=== PATIENT | female | born 1995 | race Caucasian/White ===

== ENCOUNTER 2022-06-14 05:26 | Inpatient (IN) ==
[2022-06-14] MEDS ORDERED: miSOPROStoL 200 MCG TABLET RECTAL PRN (05:35)
[2022-06-14] MEDS ORDERED: OXYTOCIN/LR 20 UNIT/1,000 ML BAG IV PRN (05:35)
[2022-06-14] MEDS ORDERED: METHYLERGONOVINE 0.2 MG/1 ML AMP IM PRN (05:35)
[2022-06-14] MEDS ORDERED: CITRIC ACID/SODIUM CITRATE 30 ML UDCUP PO PRN (05:35)
[2022-06-14] MEDS ORDERED: FAMOTIDINE 20 MG/2 ML VIAL IV PRN (05:35)
[2022-06-14] MEDS ORDERED: TRANEXAMIC ACID 1,000 MG in SODIUM CHLORIDE 0.9% 100 ML IV PRN (05:35)
[2022-06-14] MEDS ORDERED: CARBOPROST TROMETHAMINE 250 MCG/ML AMP IM PRN (05:35)
[2022-06-14 06:05] LABS: Basophils % 0.4 % (0.0-0.8); Eosinophils # 0.1 10*3/uL (0.0-0.87); Eosinophils % 0.8 % (0.00-10.9); Hematocrit 31.1 VOL% (35.7-47.0); Hemoglobin 9.7 GM/DL (12.0-16.0); Immature Granulocytes % 0.4 %; Immature Granulocytes Absolute 0.03 #; Lymphocytes # 2.4 10*3/uL (1.4-4.0); Lymphocytes % 30.4 % (21.3-54.2); Mean Corpuscular HGB Conc 31.2 GM/DL (32-36); Mean Platelet Volume 11.4 FL (9.6-12.0); Monocytes # 0.5 10*3/uL (0.11-0.8); Monocytes % 6.1 % (1.7-12.7); Neutrophils % 61.9 % (38.7-73.9); Platelet Count 237 T/CUMM (130-400); Red Blood Count 4.09 MC/CUMM (3.8-5.5); Red Cell Distribution Width 15.6 % (9.3-17.3); White Blood Count 7.7 T/CUMM (4-12)
[2022-06-14] MEDS: LACTATED RINGERS 1,000 ML IV SCH ×2 (06:05→21:22)
[2022-06-14 06:25] LABS: Alanine Aminotransferase 13 U/L (13-56); Albumin 2.2 G/DL (3.4-5.0); Alkaline Phosphatase 169 U/L (45-117); Aspartate Amino Transferase 15 U/L (0-37); Bilirubin,Total < 0.39 MG/DL (0.20-1.00); Blood Urea Nitrogen 6 MG/DL (7-18); Calcium 9.4 MG/DL (8.5-10.1); Carbon Dioxide 21 MMOL/L (21-32); Chloride 104 MMOL/L (98-107); Glucose 131 MG/DL (74-106); Potassium 3.8 MMOL/L (3.5-5.1); Sodium 136 MMOL/L (136-145)
[2022-06-14] MEDS ORDERED: miSOPROStoL 200 MCG TABLET ONE (07:22)
[2022-06-14] MEDS ORDERED: SODIUM CHLORIDE 0.9% 0 ML IV ONE (07:22)
[2022-06-14] MEDS ORDERED: TRANEXAMIC ACID 1,000 MG/10 ML VIAL ONE (07:22)
[2022-06-14] MEDS ORDERED: OXYTOCIN/LR 20 UNIT/1,000 ML BAG IV ONE ×3 (07:23→12:58)
[2022-06-14] MEDS ORDERED: METHYLERGONOVINE 0.2 MG/1 ML AMP ONE (07:23)
[2022-06-14] MEDS ORDERED: CARBOPROST TROMETHAMINE 250 MCG/ML AMP IM ONE (07:24)
[2022-06-14] MEDS: ceFAZolin 2,000 MG/50 ML DUPLEX IV PRN ×2 (08:41→16:26)
[2022-06-14] MEDS ORDERED: BUPIVACAINE SPINAL 0.75% 2 ML AMP SPINAL ONE (08:44)
[2022-06-14] MEDS ORDERED: buprenorphine HCL 0.3 MG/ML VIAL ONE (08:45)
[2022-06-14] MEDS ORDERED: PHENYLEPHRINE 1 MG/10 ML SYRINGE IV ONE (08:59)
[2022-06-14] MEDS ORDERED: ONDANSETRON 4 MG/2 ML VIAL ONE (09:07)
[2022-06-14] MEDS ORDERED: KETOROLAC 30 MG/1 ML VIAL ONE (09:07)
[2022-06-14] MEDS ORDERED: DEXAMETHASONE 4 MG/1 ML VIAL ONE (09:07)
[2022-06-14] MEDS ORDERED: ACETAMINOPHEN INJ 1,000 MG/100 ML VIAL IV ONE (09:08)
[2022-06-14] MEDS ORDERED: LACTATED RINGERS 1,000 ML IV ONE (09:20)
[2022-06-14] MEDS ORDERED: LIDOCAINE 2% 5 ML VIAL ONE (09:39)
[2022-06-14] MEDS ORDERED: propofoL 200 MG/20 ML VIAL IV ONE (09:39)
[2022-06-14 09:41] LABS: Cord Arterial Blood HCO3 21.5 MMOL/L
[2022-06-14 09:44] LABS: Cord Venous Blood HCO3 23.1 MMOL/L; Cord Venous Blood PO2 34.7
[2022-06-14 09:57] LABS: Bacteria,Urine Occasional /HPF (Few); Mucus,Urine Occasional /LPF (Occasional)
[2022-06-14 09:58] LABS: Bilirubin,Urine Negative (Negative); Glucose,Urine (UA) Negative (Negative); Ketones,Urine Negative (Negative); Nitrite,Urine Negative (Negative); Protein,Urine >=300 mg/dL (Negative); Urine Appearance Clear (Clear); Urine Color Yellow (Yellow)
[2022-06-14 09:59] LABS: Blood, Urine Negative (Negative); Urine Urobilinogen 0.2 eU/dL (<2.0)
[2022-06-14] MEDS ORDERED: ONDANSETRON 4 MG/2 ML VIAL IV PRN (12:58)
[2022-06-14] MEDS ORDERED: BISACODYL 10 MG SUPP RECTAL PRN (12:58)
[2022-06-14] MEDS ORDERED: RHO(D) IMMUNE GLOBULIN 300 MCG SYRINGE IM ONE (12:58)
[2022-06-14] MEDS ORDERED: WITCH HAZEL PADS 100/JAR TOP PRN (12:58)
[2022-06-14] MEDS ORDERED: HYDROCORTISONE 2.5% RECTAL CREAM 30 GM TUBE TOP PRN (12:58)
[2022-06-14] MEDS ORDERED: ACETAMINOPHEN 325 MG TABLET PO PRN (12:58)
[2022-06-14] MEDS ORDERED: BENZOCAINE 20%/MENTHOL 0.5% SPRAY 56 GM CAN TOP PRN (12:58)
[2022-06-14] MEDS ORDERED: oxyCODONE/ACETAMINOPHEN 5-325 MG TABLET PO PRN (12:58)
[2022-06-14] MEDS ORDERED: MEASLES/MUMPS/RUBELLA VACCINE 0.5 ML VIAL SUBCUT ONE (12:58)
[2022-06-14] MEDS ORDERED: DIPH/TET/ACEL PERT BOOSTER VACCINE 0.5 ML VIAL IM ONE (12:58)
[2022-06-14] MEDS ORDERED: LANOLIN 50% CREAM 0.3 OZ TUBE TOP PRN (12:58)
[2022-06-14] MEDS: oxyCODONE/ACETAMINOPHEN 5-325 MG TABLET PO PRN (15:23)
[2022-06-14] MEDS: ACETAMINOPHEN 500 MG TABLET PO SCH ×2 (16:00→22:17)
[2022-06-14] MEDS: KETOROLAC 30 MG/1 ML VIAL IV SCH ×2 (16:24→22:25)
[2022-06-14] MEDS: DOCUSATE SODIUM 100 MG CAPSULE PO SCH (20:47)
[2022-06-15] MEDS ORDERED: ceFAZolin 2,000 MG/50 ML DUPLEX IV ONE (00:30)
[2022-06-15] MEDS: oxyCODONE/ACETAMINOPHEN 5-325 MG TABLET PO PRN ×3 (04:20→17:00)
[2022-06-15] MEDS: ACETAMINOPHEN 500 MG TABLET PO SCH (04:20)
[2022-06-15] MEDS: KETOROLAC 30 MG/1 ML VIAL IV SCH (04:20)
[2022-06-15 04:53] LABS: Basophils % 0.1 % (0.0-0.8); Eosinophils % 0.3 % (0.00-10.9); Hematocrit 22.4 VOL% (35.7-47.0); Hemoglobin 7.2 GM/DL (12.0-16.0); Immature Granulocytes % 0.4 %; Immature Granulocytes Absolute 0.04 #; Lymphocytes # 2.2 10*3/uL (1.4-4.0); Lymphocytes % 20.9 % (21.3-54.2); Mean Corpuscular HGB Conc 32.1 GM/DL (32-36); Mean Corpuscular Volume 75.2 FL (87-102); Mean Platelet Volume 11.7 FL (9.6-12.0); Monocytes # 0.7 10*3/uL (0.11-0.8); Monocytes % 6.2 % (1.7-12.7); Neutrophils % 72.1 % (38.7-73.9); Platelet Count 148 T/CUMM (130-400); Red Blood Count 2.98 MC/CUMM (3.8-5.5); Red Cell Distribution Width 15.5 % (9.3-17.3); White Blood Count 10.6 T/CUMM (4-12)
[2022-06-15] MEDS: DOCUSATE SODIUM 100 MG CAPSULE PO SCH ×2 (10:21→21:07)
[2022-06-15] MEDS: IBUPROFEN 800 MG TABLET PO PRN ×2 (12:48→21:09)
[2022-06-16] MEDS: oxyCODONE/ACETAMINOPHEN 5-325 MG TABLET PO PRN ×2 (03:05→08:53)
[2022-06-16] MEDS: IBUPROFEN 800 MG TABLET PO PRN (07:23)
[2022-06-16 07:38] VITALS: BP 125/79
[2022-06-16] MEDS: DOCUSATE SODIUM 100 MG CAPSULE PO SCH (08:53)
== END 2022-06-16 13:35 | disposition home or self-care (01) | DRG 540 ==
LOC: N.LD 05:26 → N.OB 12:47
PROVIDERS: ADMIT Specialist; ATTEND Specialist
PROC: LDCSECT (ICD-10-PCS; 2022-06-14 09:00)